=== PATIENT | male | born 1935 | race Caucasian/White ===

== ENCOUNTER 2017-03-10 09:05 | Emergency (ER) | payer OTHER ==
[~2017-03-10] VITALS: Ht 177.8 cm; Wt 113.6 kg
[~2017-03-10 09:05] MED LIST: COLCRYS0.6 MG PO; METAMUCIL MULT425 GM PO; METAMUCIL0.52 GM PO; NORVASC5 MG PO; TOPICORT 0.05%60 GM TP
[2017-03-10 10:05] LABS: HEMATOCRIT 43.1 % (38.0-50.0); MCH 30.8 PG (29.0-34.0); MCHC 34.3 G/DL (30.0-36.0); MCV 89.6 FL (86-99); MEAN PLAT.VOLUME 10.3 uM^3 (9.0-12.4); PLATELET COUNT 155 K/uL (156-360); RBC DIS.WIDTH-CV 12.7 % (11.8-14.6); RED BLOOD COUNT 4.81 M/uL (4.00-5.50); WHITE BLOOD COUNT 6.6 K/uL (4.1-10.2)
[2017-03-10 10:18] LABS: CHLORIDE 108 mEq/L (99-109); POTASSIUM 4.5 mEq/L (3.7-5.4); SODIUM 143 mEq/L (136-147)
[2017-03-10 10:20] LABS: GLUCOSE 96 mg/dL (70-99)
[2017-03-10 10:21] LABS: ANION GAP 10 MEQ/L (2-14)
[2017-03-10 10:22] LABS: TOTAL BILIRUBIN 0.8 mg/dL (0.0-1.0)
[2017-03-10 10:23] LABS: ALKALINE PHOSPHATASE 141 IU/L (3-129)
[2017-03-10 10:24] LABS: GFR ESTIMATE (CALCULATED) 57 mL/min/
[2017-03-10 10:25] LABS: UREA NITROGEN (BUN) 17 mg/dL (9-23)
[2017-03-10 10:27] LABS: LIPASE 25 U/L (1.0-51.0)
[2017-03-10 10:31] LABS: ADD MIUA? YES; BILIRUBIN NEGATIVE; BLOOD SMALL; COLOR YELLOW ((YELLOW)); GLUCOSE (STRIP) NEGATIVE; KETONES NEGATIVE; LEUKOCYTES NEGATIVE; NITRITE NEGATIVE; PROTEIN (STRIP) NEGATIVE; SPECIFIC GRAVITY 1.014 (1.000-1.030); UROBILINOGEN 0.2 MG/DL (0.2-1.0)
[2017-03-10 10:35] LABS: BACTERIA NONE SEEN /HPF; EPITHELIAL CELLS NONE SEEN /HPF; MUCUS TRACE /LPF; UCUL ADDED? NO; WHITE BLOOD CELLS 0-5 /HPF (0-5)
[2017-03-10] MEDS ORDERED: FLOMAX0.4 MG PO (12:14)
[2017-03-10] MEDS ORDERED: LEVAQUIN500 MG PO (12:14)
[2017-03-10 12:55] VITALS: BP 152/88
== END 2017-03-10 12:59 | disposition home or self-care (01) ==
LOC: EME 09:05
PROVIDERS: Emergency Medicine
DX: R33.9 Retention of urine, unspecified (principal); N41.0 Acute prostatitis; Z88.6 Allergy status to analgesic agent; Z87.891 Personal history of nicotine dependence
CPT/HCPCS: 80053; 81003; 83690; 85027; 99281; 99285

== ENCOUNTER → 2017-03-29 | Outpatient (CLI) | payer OTHER ==
[~2017-03-29] MED LIST changes: +FLOMAX0.4 MG PO; +LEVAQUIN500 MG PO
== END | disposition home or self-care (01) ==
LOC: NUC 09:39
DX: C41.3 Malignant neoplasm of ribs, sternum and clavicle (principal); C41.4 Malignant neoplasm of pelvic bones, sacrum and coccyx; C40.21 Malignant neoplasm of long bones of right lower limb; M15.0 Primary generalized (osteo)arthritis; N42.9 Disorder of prostate, unspecified
CPT/HCPCS: 78306; A9503

== ENCOUNTER → 2017-03-31 | Outpatient (CLI) | payer MEDICARE, OTHER | END | disposition home or self-care (01) | LOC: CDC 08:25 | DX: R94.31 Abnormal electrocardiogram [ECG] [EKG] (principal) | CPT/HCPCS: 93000 ==

== ENCOUNTER 2017-06-20 01:39 | Inpatient (IN) | payer OTHER ==
[~2017-06-20] VITALS: Ht 177.8 cm; Wt 87.0 kg
[~2017-06-20 01:39] MED LIST changes: +METAMUCIL POWD822 G1 PO; -METAMUCIL0.52 GM PO
[2017-06-20 04:07] LABS: EOSINOPHIL COUNT 0.2 K/uL (0-0.3); HEMATOCRIT 31.4 % (38.0-50.0); IMMATURE GRANULOCYTE (%) 0.4 % (0.0-0.7); INSTRUMENT ABS NEUTROPHIL CT 4.4 K/uL; LYMPHOCYTE COUNT 1.7 K/uL (1.0-2.8); MCH 30.6 PG (29.0-34.0); MCV 85.1 FL (86-99); MEAN PLAT.VOLUME 9.9 uM^3 (9.0-12.4); MONOCYTE (%) 10.8 % (3-12); MONOCYTE COUNT 0.8 K/uL (0-0.8); NEUTROPHIL COUNT 4.4 K/uL (1.8-6.4); PLATELET COUNT 159 K/uL (156-360); RBC DIS.WIDTH-CV 11.9 % (11.8-14.6); RBC DIS.WIDTH-SD 36.8 % (39-53); RED BLOOD COUNT 3.69 M/uL (4.00-5.50); WHITE BLOOD COUNT 7.1 K/uL (4.1-10.2)
[2017-06-20 04:16] LABS: CHLORIDE 104 mEq/L (99-109); POTASSIUM 4.4 mEq/L (3.7-5.4); SODIUM 140 mEq/L (136-147)
[2017-06-20 04:18] LABS: GLUCOSE 96 mg/dL (70-99)
[2017-06-20 04:19] LABS: ANION GAP 16 MEQ/L (2-14)
[2017-06-20 04:21] LABS: GFR ESTIMATE (CALCULATED) 9 mL/min/
[2017-06-20 04:22] LABS: UREA NITROGEN (BUN) 54 mg/dL (9-23)
[2017-06-20] MEDS ORDERED: NORCO 5/3251 TABLET PO (05:03)
[2017-06-20] MEDS ORDERED: DEPO-TESTOS100 MG/ML IM (05:05)
[2017-06-20] MEDS ORDERED: CALCIUM 600 +1 EAC4 PO (05:07)
[2017-06-20 14:46] LABS: CHLORIDE 105 mEq/L (99-109); POTASSIUM 4.9 mEq/L (3.7-5.4); SODIUM 139 mEq/L (136-147)
[2017-06-20 14:48] LABS: GLUCOSE 103 mg/dL (70-99)
[2017-06-20 14:49] LABS: ANION GAP 11 MEQ/L (2-14)
[2017-06-20 14:50] LABS: TOTAL BILIRUBIN 0.4 mg/dL (0.0-1.0)
[2017-06-20 14:51] LABS: ALKALINE PHOSPHATASE 95 IU/L (3-129)
[2017-06-20 14:52] LABS: GFR ESTIMATE (CALCULATED) 8 mL/min/
[2017-06-20 14:53] LABS: UREA NITROGEN (BUN) 58 mg/dL (9-23)
[2017-06-20 17:48] VITALS: BP 180/91
[2017-06-20 19:34] VITALS: BP 176/88
[2017-06-20 21:35] VITALS: BP 182/84
[2017-06-20 23:49] VITALS: BP 181/84
[2017-06-21] VITALS (7 sets, daily range): BP systolic 139–181; BP diastolic 70–88
[2017-06-21 05:32] LABS: EOSINOPHIL (%) 3.9 % (0-5); EOSINOPHIL COUNT 0.2 K/uL (0-0.3); HEMATOCRIT 29.4 % (38.0-50.0); IMMATURE GRANULOCYTE (%) 0.6 % (0.0-0.7); INSTRUMENT ABS NEUTROPHIL CT 4.1 K/uL; LYMPHOCYTE COUNT 1.2 K/uL (1.0-2.8); MCH 31.5 PG (29.0-34.0); MCHC 35.4 G/DL (30.0-36.0); MEAN PLAT.VOLUME 10.2 uM^3 (9.0-12.4); MONOCYTE (%) 9.6 % (3-12); MONOCYTE COUNT 0.6 K/uL (0-0.8); NEUTROPHIL (%) 66.1 % (45-76); NEUTROPHIL COUNT 4.1 K/uL (1.8-6.4); PLATELET COUNT 149 K/uL (156-360); RBC DIS.WIDTH-CV 12.5 % (11.8-14.6); WHITE BLOOD COUNT 6.2 K/uL (4.1-10.2)
[2017-06-21 05:33] LABS: MCV 89.1 FL (86-99)
[2017-06-21 05:56] LABS: ANION GAP 14 MEQ/L (2-14); CHLORIDE 107 MEQ/L (99-109); GFR ESTIMATE (CALCULATED) 7 mL/min/; GLUCOSE 98 mg/dL (70-99); MAGNESIUM 2.4 mg/dl (1.3-2.7); POTASSIUM 4.9 MEQ/L (3.7-5.4); SAMPLE HEMOLYSIS CHECK 0; SAMPLE ICTERIC CHECK 0; SAMPLE LIPEMIA CHECK 0; SODIUM 140 MEQ/L (136-147); UREA NITROGEN (BUN) 61 mg/dL (9-23); URIC ACID 11.3 mg/dL (3.1-9.2)
[2017-06-21 08:19] LABS: TESTOSTERONE,TOTAL < 10 NG/DL (241-827)
[2017-06-22 04:19] VITALS: BP 171/79
[2017-06-22 05:08] LABS: EOSINOPHIL (%) 3.4 % (0-5); EOSINOPHIL COUNT 0.3 K/uL (0-0.3); HEMATOCRIT 30.4 % (38.0-50.0); IMMATURE GRANULOCYTE (%) 0.5 % (0.0-0.7); INSTRUMENT ABS NEUTROPHIL CT 5.6 K/uL; LYMPHOCYTE COUNT 1.3 K/uL (1.0-2.8); MCH 30.6 PG (29.0-34.0); MCHC 34.9 G/DL (30.0-36.0); MCV 87.9 FL (86-99); MEAN PLAT.VOLUME 9.9 uM^3 (9.0-12.4); MONOCYTE COUNT 0.7 K/uL (0-0.8); NEUTROPHIL COUNT 5.6 K/uL (1.8-6.4); PLATELET COUNT 167 K/uL (156-360); RBC DIS.WIDTH-CV 12.3 % (11.8-14.6); RBC DIS.WIDTH-SD 39.6 % (39-53); RED BLOOD COUNT 3.46 M/uL (4.00-5.50); WHITE BLOOD COUNT 7.9 K/uL (4.1-10.2)
[2017-06-22 06:06] LABS: ANION GAP 15 MEQ/L (2-14); CHLORIDE 106 MEQ/L (99-109); GFR ESTIMATE (CALCULATED) 5 mL/min/; GLUCOSE 99 mg/dL (70-99); MAGNESIUM 2.4 mg/dl (1.3-2.7); POTASSIUM 5.6 MEQ/L (3.7-5.4); SAMPLE HEMOLYSIS CHECK 0; SAMPLE ICTERIC CHECK 0; SAMPLE LIPEMIA CHECK 0; SODIUM 140 MEQ/L (136-147); UREA NITROGEN (BUN) 75 mg/dL (9-23)
[2017-06-22 06:07] VITALS: BP 172/79
[2017-06-22 07:53] VITALS: BP 157/80
[2017-06-22 13:46] LABS: INTER. NORMALIZED RATIO 1.2; PROTHROMBIN TIME 13.2 SEC (10.2-12.9)
[2017-06-22 13:49] LABS: PTT 31.4 SEC (25-37)
[2017-06-22 16:00] VITALS: BP 158/78
[2017-06-22 21:00] VITALS: BP 167/74
[2017-06-23 00:10] VITALS: BP 121/92
[2017-06-23 03:30] VITALS: BP 172/83
[2017-06-23 05:43] LABS: EOSINOPHIL (%) 0.1 % (0-5); HEMATOCRIT 30.6 % (38.0-50.0); IMMATURE GRANULOCYTE (%) 0.7 % (0.0-0.7); IMMATURE GRANULOCYTE COUNT 0.1 K/uL; INSTRUMENT ABS NEUTROPHIL CT 7.1 K/uL; LYMPHOCYTE COUNT 1.1 K/uL (1.0-2.8); MCH 29.9 PG (29.0-34.0); MCHC 34.6 G/DL (30.0-36.0); MCV 86.4 FL (86-99); MEAN PLAT.VOLUME 10.1 uM^3 (9.0-12.4); MONOCYTE (%) 9.7 % (3-12); MONOCYTE COUNT 0.9 K/uL (0-0.8); NEUTROPHIL (%) 77.9 % (45-76); NEUTROPHIL COUNT 7.1 K/uL (1.8-6.4); PLATELET COUNT 134 K/uL (156-360); RBC DIS.WIDTH-CV 12.2 % (11.8-14.6); RBC DIS.WIDTH-SD 38.8 % (39-53); RED BLOOD COUNT 3.54 M/uL (4.00-5.50); WHITE BLOOD COUNT 9.1 K/uL (4.1-10.2)
[2017-06-23 06:04] LABS: ANION GAP 14 MEQ/L (2-14); CHLORIDE 101 MEQ/L (99-109); GFR ESTIMATE (CALCULATED) 6 mL/min/; GLUCOSE 113 mg/dL (70-99); MAGNESIUM 2.3 mg/dl (1.3-2.7); SAMPLE HEMOLYSIS CHECK 0; SAMPLE ICTERIC CHECK 0; SAMPLE LIPEMIA CHECK 0; SODIUM 140 MEQ/L (136-147); UREA NITROGEN (BUN) 62 mg/dL (9-23)
[2017-06-23 11:53] LABS: AHBS INDEX 0.29; HBSG INDEX 0.16; HEPATITIS B SURFACE ANTIBODY Nonreactive
[2017-06-23 17:08] LABS: LD-1/LD-2 RATIO 0.53 (())
[2017-06-23 19:15] VITALS: BP 154/72
[2017-06-24 06:58] LABS: EOSINOPHIL (%) 1.3 % (0-5); EOSINOPHIL COUNT 0.1 K/uL (0-0.3); HEMATOCRIT 29.6 % (38.0-50.0); IMMATURE GRANULOCYTE (%) 0.5 % (0.0-0.7); INSTRUMENT ABS NEUTROPHIL CT 5.2 K/uL; LYMPHOCYTE COUNT 1.4 K/uL (1.0-2.8); MCH 30.3 PG (29.0-34.0); MCHC 34.8 G/DL (30.0-36.0); MCV 87.1 FL (86-99); MEAN PLAT.VOLUME 10.5 uM^3 (9.0-12.4); MONOCYTE (%) 10.7 % (3-12); MONOCYTE COUNT 0.8 K/uL (0-0.8); NEUTROPHIL (%) 69.3 % (45-76); NEUTROPHIL COUNT 5.2 K/uL (1.8-6.4); PLATELET COUNT 120 K/uL (156-360); RBC DIS.WIDTH-CV 12.4 % (11.8-14.6); RBC DIS.WIDTH-SD 39.6 % (39-53); WHITE BLOOD COUNT 7.6 K/uL (4.1-10.2)
[2017-06-24 07:22] LABS: ANION GAP 9 MEQ/L (2-14); CHLORIDE 103 MEQ/L (99-109); GFR ESTIMATE (CALCULATED) 21 mL/min/; GLUCOSE 107 mg/dL (70-99); MAGNESIUM 1.9 mg/dl (1.3-2.7); POTASSIUM 4.4 MEQ/L (3.7-5.4); SAMPLE HEMOLYSIS CHECK 0; SAMPLE ICTERIC CHECK 0; SAMPLE LIPEMIA CHECK 0; SODIUM 140 MEQ/L (136-147); UREA NITROGEN (BUN) 32 mg/dL (9-23)
[2017-06-24 07:28] VITALS: BP 156/80
[2017-06-24 11:55] VITALS: BP 137/76
[2017-06-24 16:46] VITALS: BP 158/74
[2017-06-24 19:00] VITALS: BP 165/80
[2017-06-25] VITALS (7 sets, daily range): BP systolic 131–168; BP diastolic 75–82
[2017-06-25 07:16] LABS: EOSINOPHIL (%) 1.6 % (0-5); EOSINOPHIL COUNT 0.1 K/uL (0-0.3); HEMATOCRIT 28.3 % (38.0-50.0); IMMATURE GRANULOCYTE (%) 0.5 % (0.0-0.7); INSTRUMENT ABS NEUTROPHIL CT 5.3 K/uL; LYMPHOCYTE COUNT 1.5 K/uL (1.0-2.8); MCH 29.9 PG (29.0-34.0); MCHC 34.3 G/DL (30.0-36.0); MCV 87.3 FL (86-99); MEAN PLAT.VOLUME 10.7 uM^3 (9.0-12.4); NEUTROPHIL (%) 66.4 % (45-76); NEUTROPHIL COUNT 5.3 K/uL (1.8-6.4); PLATELET COUNT 133 K/uL (156-360); RBC DIS.WIDTH-CV 12.2 % (11.8-14.6); RBC DIS.WIDTH-SD 39.5 % (39-53); RED BLOOD COUNT 3.24 M/uL (4.00-5.50)
[2017-06-25 07:47] LABS: ANION GAP 10 MEQ/L (2-14); CHLORIDE 106 MEQ/L (99-109); GFR ESTIMATE (CALCULATED) 39 mL/min/; GLUCOSE 103 mg/dL (70-99); MAGNESIUM 1.7 mg/dl (1.3-2.7); POTASSIUM 3.6 MEQ/L (3.7-5.4); SAMPLE HEMOLYSIS CHECK 0; SAMPLE ICTERIC CHECK 0; SAMPLE LIPEMIA CHECK 0; SODIUM 141 MEQ/L (136-147); UREA NITROGEN (BUN) 24 mg/dL (9-23)
[2017-06-26 04:05] VITALS: BP 138/69
[2017-06-26 06:38] LABS: EOSINOPHIL (%) 4.4 % (0-5); EOSINOPHIL COUNT 0.3 K/uL (0-0.3); HEMATOCRIT 28.1 % (38.0-50.0); IMMATURE GRANULOCYTE (%) 0.9 % (0.0-0.7); IMMATURE GRANULOCYTE COUNT 0.1 K/uL; INSTRUMENT ABS NEUTROPHIL CT 4.6 K/uL; LYMPHOCYTE COUNT 1.9 K/uL (1.0-2.8); MCH 30.4 PG (29.0-34.0); MCHC 34.5 G/DL (30.0-36.0); MCV 88.1 FL (86-99); MEAN PLAT.VOLUME 10.6 uM^3 (9.0-12.4); MONOCYTE COUNT 0.8 K/uL (0-0.8); NEUTROPHIL COUNT 4.6 K/uL (1.8-6.4); PLATELET COUNT 140 K/uL (156-360); RBC DIS.WIDTH-CV 12.3 % (11.8-14.6); RBC DIS.WIDTH-SD 39.7 % (39-53); RED BLOOD COUNT 3.19 M/uL (4.00-5.50); WHITE BLOOD COUNT 7.6 K/uL (4.1-10.2)
[2017-06-26 07:07] LABS: ANION GAP 10 MEQ/L (2-14); CHLORIDE 105 MEQ/L (99-109); GFR ESTIMATE (CALCULATED) 48 mL/min/; GLUCOSE 93 mg/dL (70-99); MAGNESIUM 1.7 mg/dl (1.3-2.7); POTASSIUM 3.5 MEQ/L (3.7-5.4); SAMPLE HEMOLYSIS CHECK 0; SAMPLE ICTERIC CHECK 0; SAMPLE LIPEMIA CHECK 0; SODIUM 141 MEQ/L (136-147); UREA NITROGEN (BUN) 23 mg/dL (9-23)
[2017-06-26 07:28] VITALS: BP 137/74
[2017-06-26 10:54] VITALS: BP 154/78
[2017-06-26 11:13] VITALS: BP 164/82
[2017-06-26] MEDS ORDERED: DILAUDID2 MG PO (14:35)
[2017-06-26] MEDS ORDERED: BISAC-EVAC10 MG PR (16:23)
[2017-06-26] MEDS ORDERED: POLYETHYLENE GL17 GM PO (16:23)
[2017-06-26] MEDS ORDERED: ALLOPURINOL100 MG PO (16:23)
[2017-06-26] MEDS ORDERED: DOCUSATE SODIU100 MG PO (16:23)
[2017-06-26] MEDS ORDERED: CEFTIN500 MG PO (16:23)
[2017-06-26] MEDS ORDERED: CALCIUM ACETAT667 MG PO (16:23)
[2017-06-26 16:36] VITALS: BP 140/98
[2017-06-26] MEDS ORDERED: MICRO-K10 ME2 PO (16:40)
== END 2017-06-26 17:59 | disposition home health service (06) | DRG 683 ==
LOC: EME 01:39 → EDOF 07:28 → 4EAST 07:28 → ENRESERV 07:32 → 5EAST 15:33 → ENRESERV 15:46 → 5EAST 15:47 → ENRESERV 16:09 → 4EAST 17:34 → ENPENDDIS 06-26 → 4EAST 06-26 17:59
PROVIDERS: Emergency Medicine; Internal Medicine; Internal Medicine Nephrology; Nurse Practitioner Adult Health; Urology
PROC: B543ZZA Ultrasonography of Right Jugular Veins, Guidance (ICD-10-PCS; 2017-06-20)
PROC: 5A1D60Z (ICD-10-PCS; 2017-06-20)
PROC: 05HM33Z Insertion of Infusion Device into Right Internal Jugular Vein, Percutaneous Approach (ICD-10-PCS; 2017-06-20)
PROC: 0T9030Z Drainage of Right Kidney with Drainage Device, Percutaneous Approach (ICD-10-PCS; principal; 2017-06-23)
PROC: 0T9130Z Drainage of Left Kidney with Drainage Device, Percutaneous Approach (ICD-10-PCS; principal; 2017-06-23)
DX: N17.9 Acute kidney failure, unspecified (principal); N13.30 Unspecified hydronephrosis; N18.6 End stage renal disease; I12.0 Hypertensive chronic kidney disease with stage 5 chronic kidney disease or end stage renal disease; C61 Malignant neoplasm of prostate; C79.51 Secondary malignant neoplasm of bone; G89.3 Neoplasm related pain (acute) (chronic); E78.5 Hyperlipidemia, unspecified; K59.03 Drug induced constipation; N32.0 Bladder-neck obstruction; N40.1 Benign prostatic hyperplasia with lower urinary tract symptoms; E86.0 Dehydration; N13.8 Other obstructive and reflux uropathy; E83.39 Other disorders of phosphorus metabolism; E87.5 Hyperkalemia; E87.2 Acidosis; E87.6 Hypokalemia; N13.5 Crossing vessel and stricture of ureter without hydronephrosis; T40.605A Adverse effect of unspecified narcotics, initial encounter; M85.852 Other specified disorders of bone density and structure, left thigh; M10.9 Gout, unspecified; Z51.5 Encounter for palliative care; Z93.6 Other artificial openings of urinary tract status; Z72.0 Tobacco use; Z68.28 Body mass index [BMI] 28.0-28.9, adult; Z79.899 Other long term (current) drug therapy; Z85.46 Personal history of malignant neoplasm of prostate; Z80.42 Family history of malignant neoplasm of prostate; Z99.2 Dependence on renal dialysis
CPT/HCPCS: 50432; 71010; 74000; 74176; 76000; 76770; 77280; 77290; 77295; 77300; 77334; 77412; 78306; 80048; 80053; 80069; 81003; 82948; 83615 90; 83625 90; 83735; 84100; 84300; 84403; 84550; 85025; 85610; 85730; 86706; 87040; 87086; 87340; 94799; 99281; 99285; A9503; C1752; C1766; C1769; C1894; G0103; J0696; J1100; J1170; J1644; J1815; J2250; J2310; J2405; J3010; J7030; J7050

== ENCOUNTER 2017-08-23 19:18 | Inpatient (IN) | payer OTHER ==
[~2017-08-23] VITALS: Ht 177.8 cm; Wt 84.2 kg
[~2017-08-23 19:18] MED LIST changes: -CIPRO500 MG PO
[2017-08-23 20:39] LABS: EOSINOPHIL (%) 0.7 % (0-5); EOSINOPHIL COUNT 0.1 K/uL (0-0.3); HEMATOCRIT 41.2 % (38.0-50.0); IMMATURE GRANULOCYTE (%) 0.4 % (0.0-0.7); IMMATURE GRANULOCYTE COUNT 0.1 K/uL; INSTRUMENT ABS NEUTROPHIL CT 9.8 K/uL; LYMPHOCYTE COUNT 1.3 K/uL (1.0-2.8); MCHC 34.2 G/DL (30.0-36.0); MCV 93.4 FL (86-99); MEAN PLAT.VOLUME 9.5 uM^3 (9.0-12.4); MONOCYTE (%) 8.3 % (3-12); NEUTROPHIL (%) 79.5 % (45-76); NEUTROPHIL COUNT 9.8 K/uL (1.8-6.4); PLATELET COUNT 150 K/uL (156-360); RBC DIS.WIDTH-CV 13.7 % (11.8-14.6); RBC DIS.WIDTH-SD 47.1 % (39-53); WHITE BLOOD COUNT 12.3 K/uL (4.1-10.2)
[2017-08-23 20:41] LABS: RED BLOOD COUNT 4.41 M/uL (4.00-5.50)
[2017-08-23 20:50] LABS: CHLORIDE 103 mEq/L (99-109); POTASSIUM 3.6 mEq/L (3.7-5.4); SODIUM 139 mEq/L (136-147)
[2017-08-23 20:52] LABS: GLUCOSE 103 mg/dL (70-99)
[2017-08-23 20:54] LABS: ANION GAP 12 MEQ/L (2-14); TOTAL BILIRUBIN 0.8 mg/dL (0.0-1.0)
[2017-08-23 20:56] LABS: ALKALINE PHOSPHATASE 103 IU/L (3-129); GFR ESTIMATE (CALCULATED) 57 mL/min/
[2017-08-23 20:57] LABS: UREA NITROGEN (BUN) 20 mg/dL (9-23)
[2017-08-23 21:00] LABS: TROP-I INTERPRETATION NEGATIVE; TROPONIN-I 0.04 ng/mL (0.0-0.30)
[2017-08-23 21:55] LABS: ADD MIUA? YES; BILIRUBIN NEGATIVE; BLOOD LARGE; COLOR BLOODY ((YELLOW)); GLUCOSE (STRIP) NEGATIVE; KETONES NEGATIVE; LEUKOCYTES LARGE; NITRITE NEGATIVE; PH, URINE 6.5 (5-8); PROTEIN (STRIP) 2000; SPECIFIC GRAVITY 1.021 (1.000-1.030); UROBILINOGEN 0.2 MG/DL (0.2-1.0)
[2017-08-23 22:26] LABS: RED BLOOD CELLS TNTC /HPF (0-5); UCUL ADDED? YES; WHITE BLOOD CELLS TNTC /HPF (0-5)
[2017-08-23 22:51] LABS: POINT-OF-CARE METER ID UU13113747
[2017-08-24 02:57] VITALS: BP 104/56
[2017-08-24 04:20] VITALS: BP 104/62
[2017-08-24 05:31] LABS: HEMATOCRIT 31.7 % (38.0-50.0); MCH 31.5 PG (29.0-34.0); MCHC 33.4 G/DL (30.0-36.0); MCV 94.3 FL (86-99); MEAN PLAT.VOLUME 9.9 uM^3 (9.0-12.4); PLATELET COUNT 132 K/uL (156-360); RBC DIS.WIDTH-CV 14.2 % (11.8-14.6); WHITE BLOOD COUNT 8.5 K/uL (4.1-10.2)
[2017-08-24 05:41] LABS: RED BLOOD COUNT 3.36 M/uL (4.00-5.50)
[2017-08-24 05:56] LABS: ANION GAP 8 MEQ/L (2-14); CHLORIDE 107 MEQ/L (99-109); GFR ESTIMATE (CALCULATED) > 59 mL/min/; GLUCOSE 108 mg/dL (70-99); POTASSIUM 3.9 MEQ/L (3.7-5.4); SAMPLE HEMOLYSIS CHECK 0; SAMPLE ICTERIC CHECK 0; SAMPLE LIPEMIA CHECK 0; SODIUM 140 MEQ/L (136-147); UREA NITROGEN (BUN) 21 mg/dL (9-23)
[2017-08-24 07:41] VITALS: BP 128/57
[2017-08-24 11:43] VITALS: BP 115/57
[2017-08-24 15:31] VITALS: BP 140/61
[2017-08-24 19:20] VITALS: BP 121/62
[2017-08-25 00:15] VITALS: BP 103/58
[2017-08-25 05:00] VITALS: BP 122/66
[2017-08-25 08:40] VITALS: BP 136/63
[2017-08-25 16:06] VITALS: BP 127/58
[2017-08-25 19:00] VITALS: BP 130/69
[2017-08-26 00:20] VITALS: BP 141/64
[2017-08-26 03:35] VITALS: BP 118/62
[2017-08-26 07:03] VITALS: BP 114/63
[2017-08-26 11:37] VITALS: BP 150/68
[2017-08-26] MEDS ORDERED: CIPRO500 MG PO (12:33)
== END 2017-08-26 13:41 | disposition home or self-care (01) | DRG 872 ==
LOC: EME 19:18 → EDOF 08-24 01:11 → 4EAST 08-24 01:11 → ENRESERV 08-24 01:14 → 4EAST 08-24 02:33
PROVIDERS: Emergency Medicine; Hospitalist
DX: A41.9 Sepsis, unspecified organism (principal); C61 Malignant neoplasm of prostate; N39.0 Urinary tract infection, site not specified; C79.51 Secondary malignant neoplasm of bone; E78.5 Hyperlipidemia, unspecified; D64.9 Anemia, unspecified; D69.6 Thrombocytopenia, unspecified; R65.20 Severe sepsis without septic shock; E87.6 Hypokalemia; N18.4 Chronic kidney disease, stage 4 (severe); R53.83 Other fatigue; E87.2 Acidosis; G89.3 Neoplasm related pain (acute) (chronic); I12.9 Hypertensive chronic kidney disease with stage 1 through stage 4 chronic kidney disease, or unspecified chronic kidney disease; Z87.442 Personal history of urinary calculi; Z87.891 Personal history of nicotine dependence; Z93.6 Other artificial openings of urinary tract status; Z79.52 Long term (current) use of systemic steroids; Z80.42 Family history of malignant neoplasm of prostate
CPT/HCPCS: 70450; 71010; 80048; 80053; 81003; 82948; 83605; 84484; 85025; 85027; 87040; 87086; 93005; 93306; 99281; 99285; J0692; J0696; J1644; J1720; J7030; J7050; J7512

== ENCOUNTER → 2017-08-23 | Outpatient (CLI) | payer OTHER ==
[~2017-08-23] VITALS: Ht 177.8 cm; Wt 83.9 kg
[~2017-08-23] MED LIST changes: +ALLOPURINOL100 MG PO; +BISAC-EVAC10 MG PR; +CALCIUM 600 +1 EAC4 PO; +CALCIUM ACETAT667 MG PO; +CEFTIN500 MG PO; +CIPRO500 MG PO; +COLACE100 MG PO; +DEPO-TESTOS100 MG/ML IM; +DILAUDID2 MG PO; +DOCUSATE SODIU100 MG PO; +MICRO-K10 ME2 PO; +MORPHINE SULFAT30 M5 PO; +NORCO 5/3251 TABLET PO; +POLYETHYLENE GL17 GM PO; +PREDNISONE5 MG PO; +ZYTIGA250 MG PO
[2017-08-23 09:35] LABS: PROTHROMBIN TIME 11.2 SEC (10.2-12.9)
[2017-08-23 09:38] LABS: PTT 26.6 SEC (25-37)
== END | disposition home or self-care (01) ==
LOC: OPR 08-17 12:00 → EDSTATUS 08:30 → OPR 08:30
PROVIDERS: Urology
DX: Z43.6 Encounter for attention to other artificial openings of urinary tract (principal); C61 Malignant neoplasm of prostate; C79.51 Secondary malignant neoplasm of bone; N40.1 Benign prostatic hyperplasia with lower urinary tract symptoms; R33.8 Other retention of urine; I10 Essential (primary) hypertension; M10.9 Gout, unspecified; N13.5 Crossing vessel and stricture of ureter without hydronephrosis; Z92.3 Personal history of irradiation; Z79.818 Long term (current) use of other agents affecting estrogen receptors and estrogen levels; Z87.891 Personal history of nicotine dependence; Z80.42 Family history of malignant neoplasm of prostate
CPT/HCPCS: 50694; 85610; 85730; C1766; C1769; C2625; J0744; J2250; J2310; J3010

== ENCOUNTER → 2017-10-09 | Outpatient (CLI) | payer OTHER ==
[~2017-10-09] MED LIST changes: +CIPRO500 MG PO
== END | disposition home or self-care (01) ==
LOC: NUC 10:39
DX: C61 Malignant neoplasm of prostate (principal)
CPT/HCPCS: 78306; A9503

== ENCOUNTER → 2017-10-19 | Outpatient (CLI) | payer OTHER ==
[~2017-10-19] MED LIST changes: +XTANDI40 MG PO
[2017-10-19 08:33] LABS: INTER. NORMALIZED RATIO 1.1; PROTHROMBIN TIME 12.2 SEC (10.2-12.9)
[2017-10-19 08:36] LABS: PTT 27.8 SEC (25-37)
== END | disposition home or self-care (01) ==
LOC: OPR 07:25 → EDSTATUS 08:00 → OPR 08:00
PROVIDERS: Internal Medicine
PROC: 0FB23ZX Excision of Left Lobe Liver, Percutaneous Approach, Diagnostic (ICD-10-PCS; principal; 2017-10-19)
DX: C78.7 Secondary malignant neoplasm of liver and intrahepatic bile duct (principal); C78.00 Secondary malignant neoplasm of unspecified lung; C79.51 Secondary malignant neoplasm of bone; C61 Malignant neoplasm of prostate; G89.3 Neoplasm related pain (acute) (chronic); N13.8 Other obstructive and reflux uropathy; N17.9 Acute kidney failure, unspecified; I10 Essential (primary) hypertension; M10.9 Gout, unspecified; Z87.891 Personal history of nicotine dependence; Z88.6 Allergy status to analgesic agent
CPT/HCPCS: 77012; 85610; 85730; 88307; 88341 TC; 88342 TC; J3010

== ENCOUNTER 2018-04-10 12:03 | Emergency (ER) | payer OTHER ==
[~2018-04-10] VITALS: Ht 175.3 cm; Wt 82.7 kg
[~2018-04-10 12:03] MED LIST changes: +HYDROMORPHONE HC2 MG PO
[2018-04-10 15:08] VITALS: BP 139/79
== END 2018-04-10 15:15 | disposition home or self-care (01) ==
LOC: EME 12:03
PROC: 0HQ0XZZ Repair Scalp Skin, External Approach (ICD-10-PCS; principal; 2018-04-10)
PROC: 3E0234Z Introduction of Serum, Toxoid and Vaccine into Muscle, Percutaneous Approach (ICD-10-PCS; principal; 2018-04-10)
DX: S01.01XA Laceration without foreign body of scalp, initial encounter (principal); S40.212A Abrasion of left shoulder, initial encounter; W18.30XA Fall on same level, unspecified, initial encounter; Z23 Encounter for immunization; Z85.46 Personal history of malignant neoplasm of prostate; Z87.891 Personal history of nicotine dependence; Z88.6 Allergy status to analgesic agent; Z88.8 Allergy status to other drugs, medicaments and biological substances
CPT/HCPCS: 70450; 99281; 99284

== ENCOUNTER → 2018-04-17 | Outpatient (CLI) | payer MEDICARE, OTHER | END | disposition home or self-care (01) | LOC: CDC 11:28 | DX: Z01.810 Encounter for preprocedural cardiovascular examination (principal); R94.31 Abnormal electrocardiogram [ECG] [EKG] | CPT/HCPCS: 93000 ==